=== PATIENT | male | born 1965 | race Two or more races ===

== ENCOUNTER 2022-04-26 11:53 | Emergency (ER) | payer OTHER ==
[~2022-04-26] VITALS: Ht 175.3 cm; Wt 108.9 kg
[2022-04-26] MEDS ORDERED: GLIMEPIRIDE1 MG (11:59)
[2022-04-26] MEDS ORDERED: METFORMIN HCL500 MG (11:59)
== END 2022-04-26 13:34 | disposition home or self-care (01) ==
LOC: ER 11:53
DX: H10.213 Acute toxic conjunctivitis, bilateral (principal)